=== PATIENT | female | born 1985 | race Caucasian/White ===

== ENCOUNTER 2018-09-03 08:41 | Outpatient (CLI) | payer BC ==
--- NOTE | 2018-09-03 09:44 | ULT ---
RIGHT UPPER QUADRANT ULTRASOUND: History: Right upper quadrant abdominal pain, nausea, abdominal pain for 5 weeks. Technique: Multiplanar grayscale and color doppler images were obtained in a right upper quadrant abd ominal ultrasound. FINDINGS: The liver is normal in echogenicity without focal lesions or intrahepatic ductal dilatation. The gall bladder is normal without stones, sludge, gallbladder wall thickening, or pericholecystic fluid. Comm on bile duct is normal measuring 2 mm. The visualized portions of the pancreas are unremarkable. The right kidneys is normal in echogenicity without hydronephrosis or calculus and measures 12.5 cm in length. IMPRESSION: Unremarkable exam. POS: [id number]
== END 2018-09-03 08:42 | disposition home or self-care (01) ==
LOC: BICULT 08:41
PROVIDERS: ATTEND Surgery
DX: R10.11 Right upper quadrant pain (principal)
CPT/HCPCS: 76705

== ENCOUNTER 2021-08-18 09:34 | Outpatient (CLI) | payer BC | END 2021-08-18 09:35 | disposition home or self-care (01) | LOC: ULT 09:34 | PROVIDERS: ATTEND Physician Assistant Medical | DX: R10.11 Right upper quadrant pain (principal) | CPT/HCPCS: 76705 ==

== ENCOUNTER 2021-11-07 09:14 | Outpatient (CLI) | payer BC | END 2021-11-07 09:15 | disposition home or self-care (01) | LOC: NM 09:14 | PROVIDERS: ATTEND Internal Medicine Gastroenterology | DX: K21.9 Gastro-esophageal reflux disease without esophagitis (principal); R19.7 Diarrhea, unspecified; R10.9 Unspecified abdominal pain; F43.9 Reaction to severe stress, unspecified | CPT/HCPCS: 78227; A9537 ==